=== PATIENT | female | born 2000 | race African-American/Black ===

== ENCOUNTER 2020-05-15 12:17 | Emergency (ER) | payer OTHER ==
[~2020-05-15] VITALS: Ht 160 cm; Wt 59.0 kg
[~2020-05-15 12:17] MED LIST: CEFDINIR300 MG PO; NOHOMEMEDICATIONS
[2020-05-15 12:21] VITALS: BP 115/71
--- NOTE | 2020-05-15 14:48 | EKG ---
[address] [address] ELECTROCARDIOGRAM REPORT Name: MAYO GARDINER Room #: [facility]#: [id number] Admission: Attend Phys: Discharge: Date of : 89 Report #: [id number] [facility] ED Test Date: 2020-05-15 Test Time: 12:25:20 Pat Name: MAYO GARDINER Department: Room: Gender: F [employer]: CLAUDE : 2000 Requested By: Ron Waggoner Order Number: [id number] MD: Tony Hickey Measurements Intervals [place] Rate: 66 P: 72 MD: 125 QRS: 65 QRSD: 78 T: 37 QT: 372 QTc: 390 Interpretive Statements Sinus rhythm Atrial premature complex Baseline wander in lead(s) V2 No previous ECG available for comparison Electronically Signed On 05-15-2020 14:47:58 [employer] by Tony Hickey [email or web address] <ELECTRONICALLY SIGNED> By: Tony Hickey MD, [facility] 05/15/20 1447 1225 1225 Tony Hickey MD, FACC /EPI
[2020-05-15] MEDS ORDERED: PROAIR HFA8.5 GM INH (14:59)
== END 2020-05-15 17:57 | disposition home or self-care (01) ==
LOC: ER 12:17
DX: R07.89 Other chest pain (principal)